=== PATIENT | male | born 1990 | race Caucasian/White ===

== ENCOUNTER 2018-12-25 12:29 | Emergency (ER) | payer BC ==
--- NOTE | 2018-12-25 13:13 | EDPHY ---
H & P Stated Complaint: lle cellulitis - Personal History Current Tetanus/Diphtheria Vaccine: Yes - Medical/Surgical History Hx Asthma: No Hx Chronic Respiratory Disease: No Hx Diabetes: No Hx Cardiac Disease: No Hx Renal Disease: No Hx Cirrhosis: No Hx Alcoholism: No Hx HIV/AIDS: No Hx Splenectomy or Spleen Trauma: No - Social History Smoking Status: Never smoked Time Seen by Provider: 12/25/18 12:52 HPI/ROS: CHIEF COMPLAINT: Left lower extremity erythema HISTORY OF PRESENT ILLNESS: 28-year-old immunocompetent male with up-to-date tetanus complaining of a wound to his left leg few days ago with development of progressive erythema, warmth, pain to the affected area. He also notes a similar lesion on his left buttock present for 2-3 days. He denies known history of cutaneous MRSA. Denies: Fever, chills, back pain, IV drug use, flu- like symptoms REVIEW OF SYSTEMS: 10 systems reviewed and negative with the exception of the elements mentioned in the history of present illness PAST MEDICAL & SURGICAL HISTORY: No pertinent medical or surgical history SOCIAL HISTORY: No IV drug use. Works at [employer] PHYSICAL EXAM (Prior to examination, patient consented to physical exam, hands were washed and my usual and customary physical exam procedures followed) 1) GENERAL: Well-developed, well-nourished, alert and oriented. Appears to be in no acute distress. 2) HEAD: Normocephalic, atraumatic 3) HEENT: Pupils equal, round, reactive to light bilaterally. Sclera anicteric. 4) NECK: Full range of motion, no meningeal signs. 5) LUNGS: Clear auscultation bilaterally, no wheezes, no rhonchi, no retractions. 6) HEART: Regular rate and rhythm, no murmur, no heave, no gallop. 7) ABDOMEN: No guarding, no rebound, no focal tenderness, negative McBurney's, negative Chávez's, negative Rovsing's, negative peritoneal sign, 8) MUSCULOSKELETAL: [Left buttock, single carbuncular wound noted with no halo erythema, no crepitus. Left lower extremity: Left lateral calf central lesion with surrounding erythema, induration, increased warmth. Brisk pulses distally. No crepitus. Soft compartments 9) BACK: No CVA tenderness, no midline vertebral tenderness, no fluctuance, no step-off, no obvious trauma, no visual or palpable abnormality. 10) SKIN: No rash, no petechiae. 11) Psychiatric: Patient is oriented X 3, there is no agitation. DIFFERENTIAL DIAGNOSIS: In no particular order including but not limited to abscess, cellulitis, necrotizing fasciitis, DVT (Maggie Haywood) Constitutional: Initial Vital Signs Temperature (C) 36.6 C 12/25/18 12:32 Heart Rate 115 H 12/25/18 12:32 Respiratory Rate 16 12/25/18 12:32 Blood Pressure 134/81 H 12/25/18 12:32 O2 Sat (%) 100 12/25/18 12:32 O2 Delivery Mode Room Air Allergies/Adverse Reactions: No Known Allergies Allergy (Unverified 12/25/18 12:32) Home Medications: Medication Instructions Recorded Cephalexin [Keflex] 500 mg PO TID 7 Days cap 12/25/18 Sulfamethox/Tmp 800/160 mg 1 tab PO BID@1000,2200 7 Days tab 12/25/18 [Bactrim Ds] Medical Decision Making Procedures: Procedure: Abscess drainage. The patient's abscess was located on the left lateral calf. I obtained verbal consent from the patient to drain the abscess who was informed about the possibility of bleeding and pain. The abscess was incised with a scalpel and a mild amount of purulent drainage was expressed. Wound culture obtained. I irrigated the wound and placed some packing. The patient tolerated the procedure well. The procedure was performed by myself. (Maggie Haywood) ED Course/Re-evaluation: 1:13 p.m.: Patient is tachycardic, his wound is concerning for cellulitis. I recommended checking laboratory studies, administer IV antibiotic, unroofing the wounds on his legs with laboratory sampling and possible hospital admission. Care of patient under supervision of secondary supervising physician Dr Luis F Tomlin with whom I discussed case. 2:24 p.m.: Re-evaluation. Feeling improvement. Patient was also seen exam by Dr. Luis F Tomlin. We think the patient can be discharged, will attempt outpatient follow-up. The extent of erythema has been outlined. He has been given dose of IV Ancef in the ER. He will be discharged with Keflex as well as Bactrim on discharge. Today is Thursday. Recommend follow up on Thursday either in the ER with primary care provider. He feels comfortable being discharged. ( Maggie Haywood) - Data Points Laboratory Results: Laboratory Results 12/25/18 13:20 12/25/18 13:20 Microbiology Results: MICROBIOLOGY 12/25/18 13:31 Blood Blood Culture - Preliminary 12/25/18 13:20 Leg - Swab Gram Stain - Final 12/25/18 13:20 Leg - Swab Wound Culture - Preliminary MRSA 12/25/18 13:15 Blood Blood Culture - Preliminary Medications Given: Discontinued Medications Cefazolin Sodium/Dextrose (Ancef 1 Gm (Premix)) 50 mls @ 200 mls/hr IV EDNOW ONE PRN Reason: Protocol Stop: 12/25/18 13:25 Last Admin: 12/25/18 14:01 Dose: 50 mls Sodium Chloride (Ns) 1,000 mls @ 0 mls/hr IV ONCE ONE PRN Reason: Wide Open Stop: 12/25/18 13:44 Last Admin: 12/25/18 14:04 Dose: 1,000 mls Departure - Departure Disposition: Home, Routine, Self-Care Clinical Impression: Cellulitis of left lower extremity without foot Condition: Good Instructions: Cellulitis (ED) Additional Instructions: Return to the ER if you develop redness, swelling, discharge, warmth to the wound, red streaks going up your leg, or any other symptoms that concern you. Referrals: Morenita Pierce MD [Medical Doctor] - 12/27/18 Prescriptions: Cephalexin [Keflex] 500 mg PO TID 7 Days cap Sulfamethox/Tmp 800/160 mg [Bactrim Ds] 1 tab PO BID@1000,2200 7 Days tab
[2018-12-25 13:36] LABS: PLATELET COUNT 290 10^3/uL (150-400)
[2018-12-25] MEDS ORDERED: NS 1,000 ML IV ONE (13:43)
[2018-12-25 13:53] LABS: INR 1.06 (0.83-1.16); PROTIME(PATIENT) 13.4 SEC (12.0-15.0)
[2018-12-25 14:36] VITALS: BP 125/82
== END 2018-12-25 14:37 | disposition home or self-care (01) ==
PROC: 0H9LXZZ Drainage of Left Lower Leg Skin, External Approach (ICD-10-PCS; principal; 2018-12-25)
DX: L03.116 Cellulitis of left lower limb (principal); L02.416 Cutaneous abscess of left lower limb
CPT/HCPCS: 96374; J0690